=== PATIENT | male | born 1960 | race Caucasian/White ===

== ENCOUNTER 2023-12-04 20:26 | Emergency (ER) | payer BC ==
[2023-12-04] MEDS ORDERED: Calcium Carbonate 500 MG ChewTAB ONE (22:46)
== END 2023-12-04 23:33 | disposition home or self-care (01) ==
LOC: NAV ERS 20:26
DX: S82.001A Unspecified fracture of right patella, initial encounter for closed fracture (principal); E11.9 Type 2 diabetes mellitus without complications; I10 Essential (primary) hypertension; Z79.84 Long term (current) use of oral hypoglycemic drugs; W01.0XXA Fall on same level from slipping, tripping and stumbling without subsequent striking against object, initial encounter